=== PATIENT | female | born 1965 | race Caucasian/White ===

== ENCOUNTER → 2020-03-20 09:53 | Outpatient (CLI) | payer BC, SELFPAY ==
--- NOTE | ~2020-03-20 | US_ITS ---
EXAMINATION: US thyroid DATE: 03/20/2020 10:33 INDICATION: Abnormal thyroid function TECHNIQUE: Multiple ultrasound images of the thyroid were obtained. COMPARISON: None. FINDINGS: The right thyroid lobe measures 4.0 x 1.2 x 1.2 cm. The left thyroid lobe measures 3.9 x 1.2 x 1.4 c m. The thyroid isthmus measures 5 mm in thickness. There is heterogeneous decreased echogenicity and coarsened echotexture throughout the thyroid with normal vascular flow on color Doppler. No discrete nodules identified. IMPRESSION: 1. Heterogeneous mild decreased echogenicity and coarsened echotexture throughout the thyroid which c ould represent sequela of thyroiditis. Reviewed, dictated and finalized at location A. IMPRESSION: 1. Heterogeneous mild decreased echogenicity and coarsened echotexture througho ut the thyroid which could represent sequela of thyroiditis.
== END ==
PROVIDERS: PCP Nurse Practitioner Adult Health; Visit Provider Nurse Practitioner Adult Health
DX: R94.6 Abnormal results of thyroid function studies (principal)
CPT/HCPCS: 76536

== ENCOUNTER 2020-08-04 06:56 | Outpatient (NON) | payer BC, SELFPAY ==
[2020-08-04 18:19] LABS: SARS-CoV-2 RNA PCR Negative
== END 2020-08-04 06:57 ==
LOC: ANHCOVIDDT 06:58
PROVIDERS: PCP Nurse Practitioner Adult Health; Visit Provider Nurse Practitioner Adult Health
DX: R68.89 Other general symptoms and signs (principal); Z20.828 Contact with and (suspected) exposure to other viral communicable diseases
CPT/HCPCS: 87635; C9803; U0003

== ENCOUNTER → 2021-10-26 15:20 | Outpatient (CLI) | payer BC, SELFPAY ==
--- NOTE | ~2021-10-26 | US_ITS ---
EXAMINATION:US venous doppler LE RT INDICATION:Right leg pain TECHNIQUE: Multiple grayscale, color flow and Doppler images of the right lower extremity deep venous systems were obtained and reviewed. COMPARISON:No prior studies for comparison. FINDINGS: The common femoral, superficial femoral and popliteal veins demonstrate normal respiratory variation, augmentation and compressibility. Color flow is also seen within the posterior tibial, pe roneal, greater saphenous and profunda veins. IMPRESSION: 1: No lower extremity deep venous thrombosis. Reviewed, dictated and finalized at location B.
== END ==
PROVIDERS: Visit Provider Nurse Practitioner Adult Health
DX: M79.604 Pain in right leg (principal)
CPT/HCPCS: 93971

== ENCOUNTER 2023-11-13 15:34 | Outpatient (CLI) | payer OTHER, SELFPAY ==
--- NOTE | ~2023-11-13 | XR_ITS ---
AP and lateral views of the neck Clinical history: Dysphagia FINDINGS: There is minimal grade 1 retrolisthesis of C4 over C5. There is minimal degenerative disc c hange in the cervical spine. No prevertebral soft tissue swelling. Air column unremarkable. No radiop aque foreign body seen. Epiglottis unremarkable. IMPRESSION: No acute abnormality seen. Minimal grade 1 retrolisthesis of C4 over C5. Reviewed, dictated and finalized at location .
== END 2023-11-13 15:35 | disposition home or self-care (01) ==
LOC: ANHBWCIMG 15:36
PROVIDERS: PCP Nurse Practitioner Adult Health; Visit Provider Nurse Practitioner Adult Health
DX: R13.10 Dysphagia, unspecified (principal)
CPT/HCPCS: 70360

== ENCOUNTER 2023-11-15 15:52 | Outpatient (CLI) | payer OTHER, SELFPAY ==
--- NOTE | ~2023-11-15 | US_ITS ---
EXAMINATION: US thyroid DATE: 11/15/2023 16:13 INDICATION: Hypothyroidism. TECHNIQUE: Multiple ultrasound images of the thyroid were obtained. COMPARISON: Thyroid ultrasound 03/20/2020 FINDINGS: The right thyroid lobe measures 3.9 x 1.1 x 1.2 cm. The left thyroid lobe measures 3.7 x 1.2 x 1.2 c m. The thyroid demonstrates coarsened echotexture. Vascularity is normal. The left thyroid lobe, the re is a 4 mm nodule. In the right thyroid lobe, there is a 4 mm nodule. IMPRESSION: 1. Small thyroid nodules, likely not clinically significant. No follow-up is needed. 2. Heterogeneous thyroid, likely chronic lymphocytic ([place]) thyroiditis. Reviewed, dictated and finalized at location A. IMPRESSION: 1. Small thyroid nodules, likely not clinically significant. No follow-up is ne eded. 2. Heterogeneous thyroid, likely chronic lymphocytic ([place]) thyroiditis.
== END 2023-11-15 15:53 ==
PROVIDERS: PCP Nurse Practitioner Adult Health; Visit Provider Nurse Practitioner Adult Health
DX: E03.9 Hypothyroidism, unspecified (principal); E04.2 Nontoxic multinodular goiter
CPT/HCPCS: 76536

== ENCOUNTER 2024-03-12 14:16 | Outpatient (CLI) | payer OTHER, SELFPAY ==
--- NOTE | ~2024-03-12 | XR_ITS ---
XR abdomen/kub 1V Ordering provider: Sharon Nguyen APRN History: . R39.9 - Unspecified symptoms and signs involving the jo... . Comparison: None. FINDINGS: BOWEL: Fecal material in the colon suggestive of constipation. Nonobstructive bowel gas pattern. ORGANOMEGALY: None. SIGNIFICANT PATHOLOGIC CALCIFICATIONS: None. OTHER: No free air is seen under the diaphragm. IMPRESSION: NO ACUTE ABDOMINAL FINDINGS. Constipation. Reviewed, dictated and finalized at location A.
[2024-03-12 19:40] LABS: Appearance Urine Clear (Clear); Bilirubin Urine Negative (Negative); Blood Urine Negative (Negative); Color Urine Yellow (Yellow); Glucose Urine UA Negative (Negative); Ketones Urine Negative (Negative); Leukocyte Esterase Ur Negative LEU/UL (Negative); Nitrate Urine Negative (Negative); Protein Urine Negative (Negative); Specific Grav Ur 1.006 (1.001-1.035); Urobilinogen Urine 0.2 mg/dL (<2.0)
[2024-03-12 19:56] LABS: Add Urine Microscopic? NO
== END 2024-03-12 14:17 | disposition home or self-care (01) ==
LOC: ANHBWCLAB 14:18
PROVIDERS: PCP Nurse Practitioner Adult Health; Visit Provider Nurse Practitioner Adult Health
DX: R39.9 Unspecified symptoms and signs involving the genitourinary system (principal)
CPT/HCPCS: 74018; 81003; 87086